=== PATIENT | female | born 1990 | race Caucasian/White ===

== ENCOUNTER 2021-02-18 22:37 | Inpatient (IN) | payer OTHER, SELFPAY ==
[~2021-02-18] VITALS: Ht 170.2 cm; Wt 85.7 kg
[2021-02-18 22:53] VITALS: BP 132/82
[2021-02-18] MEDS ORDERED: PRENTAB9 PO (23:54)
--- NOTE | 2021-02-19 00:32 | HPEPDOC ---
Obstetrical History & Physical General Date of Admission Feb 18, 2021 at 23:33 Primary Care Physician: Zan Duarte MD History of Present Illness Chief Complaint: Contractions, term Information Provided By: Patient Age: 30 : 3 Term: 2 Pre-term: 0 Abortions: 0 Livin Care Care: Good Care Number of Visits: 8 Dating Final EDC: Feb 16, 2021 Final EDC for Daily Update: Feb 16, 2021 Final EDC by: LMP LMP: May 12, 2020 1st Trimester Date: Jul 01, 2020 Weeks + Days: 7.1 Estimated Date of Confinement: Feb 16, 2021 EGA at Admission: 40.2 Antepartum Course Height (inches): 67 Pre- weight (lbs.): 156 Admission Weight (lbs.): 189 Change in Weight (lbs.): 33 Past Medical History Past Obstetrical History #1: Past Obstetrical History: Multigravida Date of Delivery: Sep 22, 2014 Gestation: 40.1 Type of Delivery: Ceserean section Sex of Infant: Male Weight of Infant (grams): 3373.5 Complications: No Past Obstetrical History #2: Past Obstetrical History: Multigravida Date of Delivery: Sep 11, 2019 Gestation: 41.3 Type of Delivery: Spontaneous Vaginal Del. Sex of : Male Weight of Infant (grams): 3373.5 Complications: No [facility] History: No pertinent history Past Medical History Medical History migraines asthma Surgical History: section (tonsils wisdom teeth) Family History Significant Family History: No pertinent family hx Social History Marital Status: Family situation: Spouse/partner home Psychosocial History: No pertinent psych hx * Smoker: non-smoker Alcohol: Denies Drugs: denies Abuse Violence Screening Have you been hit/kicked/slapp: No Have you been sexually assault: No Imunizations Tdap status: current Influenza Status: current Allergies Uncoded Allergies: grady (Allergy, Mild, 02/18/21) Medications Scheduled No.137/Iron/Folic Acd ( Vitamin Tablet) 1 Each Tablet, 1 TAB PO DAILY Physical Examination Physical Examination GENERAL: Alert and oriented times three. BREAST: . ABDOMEN: Gravid and non-tender to touch. FETUS: Is vertex (VTX) by sterile vaginal examination (SVE), fetus is vertex (VTX) by Richie. HEART RATE: Regular rate and rhythm. LUNGS: Clear to auscultation (CTA). EXTREMITIES: No edema. No clonus. Deep tendon reflexes (DTRs) + . Other physical findings in active labor, orientated normocephalic chest clear to bases heart normal no murmur no wheezes no rhonchi no cva tenderness no rashes lesions or purities abdomen soft 4 quadrant bowel sounds no urgency frequency no diarrhea constipation Vital Signs/I&O Vital Signs Date Time Temp Pulse Resp B/P (MAP) Pulse Ox O2 Delivery O2 Flow Rate FiO2 02/18/21 22:53 98.5 96 18 132/82 (99) Laboratory Data [facility] Laboratory Tests 2 02/18/21 23:42: Serology Scanned Report Hepatitis B Testing CBC/BMP sf height 40 cm vertex 4 cm anterior soft -3 station membrnes intact Pertinent Laboratoy Data Blood Type: A+ RBC Antibody Screen: Negative HIV: Negative Hepatitis B: Negative Rapid Plasma Reagin: Nonreactive Rubella: Immune Varicella: Immune Chlamydia/Gonorrhea: Negative Group B Streptococcus: Negative Cystic Fibrosis: Negative Anatomy Ultrasound Ultrasound Date: Sep 29, 2020 Placenta Location: Anterior Normal Anatomy: Yes Placenta Previa: No Estimated Weight (grams): 373 Steroid Therapy Steroid Therapy: No Vaginal Examination Dilation: 4 cm Effacement: 50% Station: -3 Cervical Consistency: Soft Cervical Position: Anterior Presentation: Cephalic presentation Assessment Heart Rate (FHR): 140 Variability: Moderate Accelerations: Positive Decelerations: None Tocometer Contractions: Yes Frequency: regular, every 1-3 min. Duration: less than 60 seconds Strength: palpated as moderate Assessment/Plan Assessment 30-year-old (G3 para (P 2 at 40.2 weeks by 12 -week ultrasound. Presents to Labor and Delivery (L&D) . Plan Admit and orient. 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 Diet: npo Group B Streptococcus (GBS) [negative]. Labs and intravenous (IV) per unit protocol. Counseled on Pitocin augmentation labor Lactated Ringers (LR): Bolus 800 mL, then at 125 mL/hr. Anticipate [normal spontaneous delivery ()]. presently tolac C-S as appropriate. Labor and Delivery Counseling reviewed risks TOLAC still risk rupture uterus despite past history successful TOLAC risk of hemorrhage infection perforation re operation risk of if ruptured uterus remote blood transfusion, remote hysterectomy for life TOLAC bleeding expressed understanding Zan Duarte MD Feb 19, 2021 00:31
[2021-02-19] MEDS ORDERED: LACTATED RINGER'S 1000 ML IV ONE (00:35)
[2021-02-19] MEDS ORDERED: LR 1,000 ML IV SCH (00:35)
[2021-02-19 00:43] LABS: HEMOGLOBIN 12.3 g/dl (12.0-15.5); MEAN CORPUSCULAR HEMOGLOBIN 35.1 pg (27.0-33.0); MEAN CORPUSCULAR HGB CONC 34.2 g/dl (32.0-36.5); MEAN CORPUSCULAR VOLUME 102.9 fl (80.0-96.0); PLATELET COUNT, AUTOMATED 138 10^3/uL (150-450); WHITE BLOOD COUNT 10.3 10^3/uL (4.0-10.0)
[2021-02-19] MEDS ORDERED: ONDANSETRON 4MG/2ML VIAL IV ONE (01:15)
[2021-02-19] MEDS ORDERED: ONDANSETRON 4MG/2ML VIAL As Ordered ONE (01:17)
[2021-02-19] MEDS ORDERED: OXYTOCIN INJ 10 UNITS/ML VIAL (J2590) As Ordered ONE (01:59)
[2021-02-19] MEDS ORDERED: OXYTOCIN 30 UNITS IN 0.9% NaCl 500ML IV BAG (J2590) As Ordered ONE (01:59)
[2021-02-19 02:28] LABS: CORD GAS ABE V -3.3; CORD GAS HCO3 V 21.9 MEQ/L; CORD GAS O2 SAT V 72.2 %; CORD GAS PH V 7.356 UNITS; CORD GAS SBC V 21.1 MEQ/L; CORD GAS TCO2 V 23.1 MEQ/L
[2021-02-19 02:31] LABS: CORD GAS PCO2 A 53.3 mmHg; CORD GAS PH A 7.252 UNITS; CORD GAS PO2 A 17.9 mmHg; CORD GAS SBC A 18.8 MEQ/L; CORD GAS TCO2 A 24.6 MEQ/L
[2021-02-19] MEDS ORDERED: RHOGAM 300 MCG (1500 IU) INJ (J2790) IM SCH (03:10)
[2021-02-19] MEDS ORDERED: ANUSOL HC CREAM 30GM TOP PRN (03:10)
[2021-02-19] MEDS ORDERED: MEASLES,MUMPS,RUBELLA VACCINE INJ (MMR-II) (90707) SC SCH (03:10)
[2021-02-19] MEDS ORDERED: DOCUSATE SODIUM 100MG CAPSULE PO PRN (03:10)
[2021-02-19] MEDS: LR 1,000 ML IV SCH ×2 (03:10→11:10)
[2021-02-19] MEDS ORDERED: METHYLERGONOVINE MALEATE 0.2 MG TAB PO PRN (03:10)
[2021-02-19] MEDS ORDERED: MOM 30ML SUSPENSION UDC PO PRN (03:10)
[2021-02-19] MEDS ORDERED: DIBUCAINE 1% OINTMENT 30GM TOP PRN (03:10)
[2021-02-19] MEDS ORDERED: OXYTOCIN INJ 10 UNITS/ML VIAL (J2590) IV ONE (03:10)
[2021-02-19] MEDS ORDERED: ACETAMINOPHEN 500 MG TAB PO PRN (03:10)
[2021-02-19] MEDS ORDERED: OXYTOCIN DRIP 30 UNITS in IV 1 EA IV ONE (03:10)
[2021-02-19] MEDS: IBUPROFEN 600MG TAB PO PRN ×2 (03:29→13:46)
[2021-02-19 04:11] VITALS: BP 138/74
[2021-02-19 06:00] VITALS: BP 119/62
[2021-02-19] MEDS: PRENATAL VITAMINS CHEWABLE TABLET PO SCH (08:51)
[2021-02-19] MEDS: ACETAMINOPHEN TAB 650MG DOSE (2X325MG) PO PRN (08:52)
--- NOTE | 2021-02-19 12:43 | DN ---
DELIVERY NOTE DATE OF DELIVERY: 02/19/2021 This lady is a 30-year-old 3, para 2, admitted i spontaneous labor at 40 and 2 weeks of gestation. She is a trial of labor, having had a previous section for failure to progress. She had intravenous (IV) medications. Spontanously ruptured her membranes prior to delivery with minimal amount of fluid suggestive of oligohydramnios. A live- male weighing 8 pounds 7 ounces, 3830 grams, scores of 9 and 9 at one and five minutes, respectively. Arterial pH 7.25, base excess -5.0, venous pH 7.35, base excess -3.3. Placental delivered spontaneously thereafter. Three vessels in the cord. Membranes and tissues intact. Uterus contracted well down on Pitocin. The lower segment on digital examination was intact. Anterior, posterior, and lateral lawson were complete. Sphincter was tight. No lacerations or tears. The uterus remains contracted well down on Pitocin. Patient and baby tolerating procedure well.
[2021-02-19 18:45] VITALS: BP 128/69
[2021-02-19] MEDS ORDERED: ALBUTEROL 90 MCG/ACT 8GM HFA INHALER INH PRN (18:50)
[2021-02-20] MEDS: IBUPROFEN 600MG TAB PO PRN (00:31)
[2021-02-20 06:37] VITALS: BP 101/50
--- NOTE | 2021-02-20 07:20 | OBDS ---
[facility] Obstetrical Discharge Sum. Obstetrical Discharge Summary Date: Feb 20, 2021 Delivery DATE OF DELIVERY: 02/19/2021 This lady is a 30-year-old 3, para 2, admitted i spontaneous labor at 40 and 2 weeks of gestation. She is a trial of labor, having had a previous section for failure to progress. She had intravenous (IV) medications. Spontanously ruptured her membranes prior to delivery with minimal amount of fluid suggestive of oligohydramnios. A live- male infant weighing 8 pounds 7 ounces, 3830 grams, scores of 9 and 9 at one and five minutes, respectively. Arterial pH 7.25, base excess -5.0, venous pH 7.35, base excess -3.3. Placental delivered spontaneously thereafter. Three vessels in the cord. Membranes and tissues intact. Uterus contracted well down on Pitocin. The lower segment on digital examination was intact. Anterior, posterior, and lateral lawson were complete. Sphincter was tight. No lacerations or tears. The uterus remains contracted well down on Pitocin. Patient and baby tolerating procedure well. course uncomplicated. Patient has been ambulating, tolerating a regular diet and reports minimal lochia. She is breast feeding without difficul ty and is planning on vasectomy/BTL for contraception. States she is ready for D/C home today. Declines circumcision. Day of discharge exam: Vitals: within normal limits General: AAOx3, NAD CV/LUngs: Normal work of breathing, normal rate Abdomen: U-2, firm Ext: nontender, no edema or erythema Vital Signs Date Time Temp Pulse Resp B/P (MAP) Pulse Ox O2 Delivery O2 Flow Rate FiO2 02/20/21 06:37 97.9 70 18 101/50 (67) 02/19/21 18:45 98.2 97 17 128/69 (88) 97 Current Medications Medications (Trade) Dose Ordered Sig/Melanie Route PRN Reason Start Time Stop Time Status Last Admin Dose Admin Acetaminophen (Tylenol Tab) 650 mg Q4HP PRN PO PAIN LEVEL 1-5 02/19/21 03:10 02/19/21 08:52 650 MG Ibuprofen (Advil) 600 mg Q6HP PRN PO PAIN LEVEL 1-5 02/19/21 03:10 02/20/21 00:31 600 MG Prenat Multivit/ [place]/Iron/Folic Ac ( Vitamins) 1 tab DAILY PO 02/19/21 09:00 02/19/21 08:51 1 TAB A/P, Post Course List any complications Admission diagnosis: labor/TOLAC. Discharge diagnosis: successful Condition at Discharge: stable Discharge Instructions: home Activity: no heavy lifting and recommend pelvic rest x6 weeks Diet:regular Medications: tylenol and motrin prn pain Follow-up: 6wk PP visit TRISTEN YEUNG M.D. Feb 20, 2021 07:20
[2021-02-20 07:49] LABS: HEMATOCRIT 34.6 % (36.0-47.0); HEMOGLOBIN 11.3 g/dl (12.0-15.5); MEAN CORPUSCULAR HEMOGLOBIN 34.6 pg (27.0-33.0); MEAN CORPUSCULAR HGB CONC 32.7 g/dl (32.0-36.5); MEAN CORPUSCULAR VOLUME 105.8 fl (80.0-96.0); PLATELET COUNT, AUTOMATED 112 10^3/uL (150-450); RED BLOOD COUNT 3.27 10^6/uL (4.00-5.40); WHITE BLOOD COUNT 7.4 10^3/uL (4.0-10.0)
[2021-02-20] MEDS: PRENATAL VITAMINS CHEWABLE TABLET PO SCH (09:10)
[2021-02-20] MEDS: ACETAMINOPHEN TAB 650MG DOSE (2X325MG) PO PRN (09:12)
== END 2021-02-20 11:40 | disposition home or self-care (01) | DRG 806 ==
LOC: M LDO 22:37 → M LDI 23:33 → M OBS 02-19 04:09
PROVIDERS: ADMIT Obstetrics & Gynecology; ATTEND Obstetrics & Gynecology
PROC: 10E0XZZ Delivery of Products of Conception, External Approach (ICD-10-PCS; principal; 2021-02-19)
DX: O34.219 Maternal care for unspecified type scar from previous cesarean delivery (principal); Z37.0 Single live birth; O41.03X0 Oligohydramnios, third trimester, not applicable or unspecified; Z3A.40 40 weeks gestation of pregnancy; O48.0 Post-term pregnancy

== ENCOUNTER 2021-09-27 18:22 | Emergency (ER) | payer OTHER ==
[~2021-09-27] VITALS: Ht 170.2 cm; Wt 79.5 kg
[~2021-09-27 18:22] MED LIST: PRENTAB9 PO
[2021-09-27 18:28] VITALS: BP 117/78
== END 2021-09-27 19:59 | disposition home or self-care (01) ==
LOC: M ED 18:22
DX: S52.502A Unspecified fracture of the lower end of left radius, initial encounter for closed fracture (principal); W00.0XXA Fall on same level due to ice and snow, initial encounter; Y92.018 Other place in single-family (private) house as the place of occurrence of the external cause; J45.909 Unspecified asthma, uncomplicated; Z91.048 Other nonmedicinal substance allergy status

== ENCOUNTER → 2021-10-09 | Outpatient (CLI) | payer OTHER | LOC: M SOG 12:56 | PROVIDERS: ATTEND Orthopaedic Surgery Hand Surgery | DX: S52.532D Colles' fracture of left radius, subsequent encounter for closed fracture with routine healing (principal) ==

== ENCOUNTER → 2021-10-30 | Outpatient (CLI) | payer OTHER | LOC: M SOG 08:59 | PROVIDERS: ATTEND Physician Assistant | DX: S52.532A Colles' fracture of left radius, initial encounter for closed fracture (principal); W18.30XA Fall on same level, unspecified, initial encounter; Y92.009 Unspecified place in unspecified non-institutional (private) residence as the place of occurrence of the external cause ==

== ENCOUNTER → 2022-05-17 | Outpatient (REF) | payer OTHER | LOC: M SFHCDERM 14:50 | PROVIDERS: ATTEND Physician Assistant | DX: L57.0 Actinic keratosis (principal) | CPT/HCPCS: 11102; 88305; 88342; G0463 ==